=== PATIENT | male | born 1985 | race Caucasian/White ===

== ENCOUNTER 2017-02-22 12:12 | Emergency (ER) | payer OTHER ==
[2017-02-22 14:02] VITALS: BP 135/69
== END 2017-02-22 14:02 | disposition home or self-care (01) ==
LOC: ED 12:12
DX: S80.02XA Contusion of left knee, initial encounter (principal); L03.116 Cellulitis of left lower limb; J45.909 Unspecified asthma, uncomplicated; W01.0XXA Fall on same level from slipping, tripping and stumbling without subsequent striking against object, initial encounter; Y93.89 Activity, other specified; Y99.8 Other external cause status; Y92.89 Other specified places as the place of occurrence of the external cause
CPT/HCPCS: 90715; J0690

== ENCOUNTER 2017-04-27 08:07 | Emergency (ER) | payer OTHER ==
[2017-04-27 10:31] VITALS: BP 153/84
== END 2017-04-27 10:31 | disposition home or self-care (01) ==
LOC: ED 08:07
DX: Z02.89 Encounter for other administrative examinations (principal); T75.4XXA Electrocution, initial encounter; W45.8XXA Other foreign body or object entering through skin, initial encounter; Y93.89 Activity, other specified; Y92.89 Other specified places as the place of occurrence of the external cause; Y99.8 Other external cause status; J45.909 Unspecified asthma, uncomplicated
CPT/HCPCS: 90715; J2001